=== PATIENT | female | born 1960 | race Two or more races ===

== ENCOUNTER 2017-05-30 07:46 | Day surgery (SDC) | payer BC ==
[2017-05-25 16:37] VITALS: BMI 26.3
[2017-05-30] MEDS ORDERED: PROPOFOL 20 ML ONE ×2 (07:53)
[2017-05-30 09:29] VITALS: TEMP 97.5
[2017-05-30 09:44] VITALS: BP 146/76; PULSE 60
== END 2017-05-30 09:45 | disposition home or self-care (01) ==
LOC: FASU-ENDO 07:46
PROVIDERS: ATTEND Internal Medicine Gastroenterology
PROC: 0DJD8ZZ Inspection of Lower Intestinal Tract, Via Natural or Artificial Opening Endoscopic (ICD-10-PCS; principal; 2017-05-30 08:48)
DX: Z86.010 Personal history of colon polyps (principal)

== ENCOUNTER 2023-09-22 08:02 | Day surgery (SDC) | payer BC ==
[2023-09-20 09:59] VITALS: BMI 25.2
[2023-09-22 08:24] VITALS: RESP 18
[2023-09-22 09:49] VITALS: TEMP 98
[2023-09-22 09:51] VITALS: BP 130/62; PULSE 61
== END 2023-09-22 10:02 | disposition home or self-care (01) ==
LOC: FASU-ENDO 08:02
PROVIDERS: ATTEND Internal Medicine Gastroenterology
PROC: 0DJD8ZZ Inspection of Lower Intestinal Tract, Via Natural or Artificial Opening Endoscopic (ICD-10-PCS; principal; 2023-09-22 09:09)
DX: Z12.11 Encounter for screening for malignant neoplasm of colon (principal); Z83.719 Family history of colon polyps, unspecified